=== PATIENT | male | born 1955 | race Caucasian/White ===

== ENCOUNTER 2019-06-15 10:09 | Outpatient (CLI) | payer OTHER ==
[2019-06-15 10:58] LABS: A1C 6.7 % (<5.7)
[2019-06-15 11:03] LABS: eGFR (Non-African) > 60
[2019-06-15 11:04] LABS: HDL 32 mg/dL (>40)
== END 2019-06-15 10:12 ==
LOC: LAB 10:09
PROVIDERS: ATTEND Family Medicine
DX: E11.9 Type 2 diabetes mellitus without complications (principal)
CPT/HCPCS: 36415; 80053; 80061; 82043; 83036